=== PATIENT | male | born 1950 | race Caucasian/White ===

== ENCOUNTER → 2016-07-15 | Outpatient (CLI) | payer BC | LOC: MW.CHPOD 07:45 | PROVIDERS: ATTEND Orthopaedic Surgery | DX: M25.552 Pain in left hip (principal); Z53.9 Procedure and treatment not carried out, unspecified reason ==

== ENCOUNTER → 2016-07-19 | Outpatient (CLI) | payer BC ==
[2016-07-19 09:31] LABS: CHLORIDE,CL 108 mmol/L (98-110); SODIUM,NA 137 mmol/L (136-146)
== END ==
LOC: MW.CHPOD 08:57
PROVIDERS: ATTEND Podiatrist Foot & Ankle Surgery
DX: L03.116 Cellulitis of left lower limb (principal); E11.9 Type 2 diabetes mellitus without complications
CPT/HCPCS: 36415; 80048; 83036; 85025

== ENCOUNTER 2017-05-12 08:40 | Observation (INO) | payer MEDICARE, BC ==
[2017-05-12] MEDS ORDERED: Sodium Chloride 0.9% 1,000 ML IV SCH (09:00)
--- NOTE | 2017-05-12 09:07 | EDM.PDOC ---
ED HPI GENERAL MEDICAL PROBLEM - General Chief Complaint: General Stated Complaint: PT IS HER FOR A BLOOD TRANSFUSION Time Seen by Provider: 05/12/17 08:50 - History of Present Illness INITIAL COMMENTS - FREE TEXT/NARRATIVE: HISTORY AND PHYSICAL: History of present illness: Patient 66-year-old white male sent here from [facility] for anemia he is known to have chronic anemia and was scheduled to have endoscopy and colonoscopy per general surgery he had a hemoglobin on Friday of 7 and repeat today was 6 and he was sent here for admission and transfusion he denies chest pain shortness breath or other concern has been no melena or hematochezia or other complaints he has no known history of malignancy he does have history of diabetes that he states is reasonably controlled. He denies vomiting diarrhea weight loss he is noted to have a below the knee amputation on the left related to complications of diabetes Review of systems: As per history of present illness and below otherwise all systems reviewed and negative. Past medical history: As per history of present illness and as reviewed below otherwise noncontributory. Surgical history: As per history of present illness and as reviewed below otherwise noncontributory. Social history: No reported history of drug or alcohol abuse. Family history: As per history of present illness and as reviewed below otherwise noncontributory. Physical exam: HEENT: Atraumatic, normocephalic, pupils reactive, conjunctival pallor noted, mucous membranes moist, throat clear, neck supple, nontender, trachea midline. Lungs: Clear to auscultation, breath sounds equal bilaterally, chest nontender. Heart: S1S2, regular, negative for clicks, rubs, or JVD. Abdomen: Soft, protuberant , nontender. Negative for masses or hepatosplenomegaly. Negative for costovertebral tenderness. Pelvis: Stable nontender. Genitourinary: Deferred. Rectal: Deferred. Extremities: Left below the knee amputation noted Neuro: Awake, alert, oriented. Cranial nerves II through XII unremarkable. Cerebellum unremarkable. Motor and sensory unremarkable throughout. Exam nonfocal. Diagnostics: CBC CMP PT/INR chest x-ray EKG Type and screen Therapeutics: IV O2 monitor Impression: #1 profound anemia #2 history of diabetes Definitive disposition and diagnosis as appropriate pending reevaluation and review of above. - Related Data Allergies Allergy/AdvReac Type Severity Reaction Status Date / Time No Known Allergies Allergy Verified 05/12/17 09:00 Home Meds: Home Meds Gemfibrozil [Gemfibrozil] 1 tab DAILY 08/26/13 [History] atorvaSTATin [Lipitor] 10 mg PO ONETIME 12/17/15 [History] sitaGLIPtin Phos/Metformin HCl [Janumet 50-1,000 MG] 1 each PO DAILY 12/17/15 [ History] Past Medical History HEENT History: Reports: None Cardiovascular History: Reports: High Cholesterol, Hypertension Respiratory History: Reports: None Gastrointestinal History: Reports: GERD Genitourinary History: Reports: None Musculoskeletal History: Reports: None, Amputation Neurological History: Reports: None Psychiatric History: Reports: None Endocrine/Metabolic History: Reports: Diabetes, Type II Hematologic History: Reports: None Immunologic History: Reports: None Dermatologic History: Reports: None - Infectious Disease History Infectious Disease History: Reports: None - Past Surgical History HEENT Surgical History: Reports: None Cardiovascular Surgical History: Reports: Carotid Endarterectomy, Other (See Below) Other Cardiovascular Surgeries/Procedures: Femoral artery bypass Social & Family History - Tobacco Use Smoking Status *Q: Never Smoker - Caffeine Use Caffeine Use: Reports: Coffee - Alcohol Use Days Per Week of Alcohol Use: 0 Number of Drinks Per Day: 2 Total Drinks Per Week: 0 - Recreational Drug Use Recreational Drug Use: No Drug Use in Last 12 Months: No ED ROS GENERAL - Review of Systems Review Of Systems: ROS reveals no pertinent complaints other than HPI. ED EXAM, GENERAL - Physical Exam Exam: See Below (See dictation) Course - Orders/Labs/Meds Orders: Active Orders 24 hr Category Date Time Status EKG Documentation Completion [RC] STAT Care 05/12/17 08:51 Active Chest 1V Frontal [CR] Stat Exams 05/12/17 08:51 Ordered CBC WITH AUTO DIFF [HEME] Stat Lab 05/12/17 08:51 Ordered COMPREHENSIVE METABOLIC PN,CMP [CHEM] Stat Lab 05/12/17 08:51 Ordered INR,PT,PROTHROMBIN TIME [COAG] Stat Lab 05/12/17 08:51 Ordered TYPE AND SCREEN [BBK] Stat Lab 05/12/17 08:51 Ordered Sodium Chloride 0.9% [Normal Saline] 1,000 ml Med 05/12/17 09:00 Active IV STAT Medication Orders Sodium Chloride (Normal Saline) 1,000 mls @ 125 mls/hr IV STAT PHILLIP Meds: Medications Generic Name Dose Route Start Last Admin Trade Name Brent PRN Reason Stop Dose Admin Sodium Chloride 1,000 mls @ 125 mls/hr 05/12/17 09:00 Normal Saline IV STAT PHILLIP Departure - Departure Time of Disposition: 09:07 Disposition: Refer to Observation Condition: Good Clinical Impression: Anemia, Diabetes - Discharge Information Referrals: Jesse Gruber MD [Primary Care Provider] - - My Orders Last 24 Hours: My Active Orders 05/12/17 08:51 EKG Documentation Completion [RC] STAT Chest 1V Frontal [CR] Stat CBC WITH AUTO DIFF [HEME] Stat COMPREHENSIVE METABOLIC PN,CMP [CHEM] Stat INR,PT,PROTHROMBIN TIME [COAG] Stat TYPE AND SCREEN [BBK] Stat 05/12/17 09:00 Sodium Chloride 0.9% [Normal Saline] 1,000 ml IV STAT - Assessment/Plan Last 24 Hours: My Active Orders 05/12/17 08:51 EKG Documentation Completion [RC] STAT Chest 1V Frontal [CR] Stat CBC WITH AUTO DIFF [HEME] Stat COMPREHENSIVE METABOLIC PN,CMP [CHEM] Stat INR,PT,PROTHROMBIN TIME [COAG] Stat TYPE AND SCREEN [BBK] Stat 05/12/17 09:00 Sodium Chloride 0.9% [Normal Saline] 1,000 ml IV STAT
[2017-05-12] MEDS ORDERED: Sodium Chloride 0.9% 500 ML IV SCH ×2 (09:15→10:12)
[2017-05-12 09:46] LABS: CHLORIDE,CL 108 mmol/L (98-110); SODIUM,NA 139 mmol/L (136-146)
--- NOTE | 2017-05-12 10:12 | CR ---
EXAMINATION: Portable chest radiograph. HISTORY: Shortness of breath. FINDINGS: The trachea is midline. The cardiomediastinal silhouette is within normal limits. No pulmonary infilt rates, effusions or pneumothorax. Old left clavicle fracture noted with pseudarthrosis. IMPRESSION: No acute cardiopulmonary process.
[2017-05-12] MEDS ORDERED: Acetaminophen 325 MG Tab PO PRN (12:06)
[2017-05-12] MEDS ORDERED: Sodium Chloride 0.9% 2.5 ML Syringe FLUSH PRN (12:06)
[2017-05-12] MEDS ORDERED: Sodium Chloride 0.9% 10 ML Syringe FLUSH PRN (12:06)
--- NOTE | 2017-05-12 17:22 | PCM.HP ---
H&P History of Present Illness - General Date of Service: 05/12/17 Admit Problem/Dx: Admission Diagnosis/Problem Admission Diagnosis/Problem Anemia Source of Information: Patient History Limitations: Reports: No Limitations - History of Present Illness Initial Comments - Free Text/Narative: This is a 66-year-old gentleman who is presenting secondary to acute anemia of 6.6. Patient was just seen at the [facility] for laboratory assessment and was found to be anemic at 6.6 and was transferred over for blood transfusion. Patient is scheduled to have a screening colonoscopy and EGD on June [address] Segura. Patient denies any acute GI bleed, or acute abdominal pain, hemorrhoids, nausea/vomiting or other symptoms of acute blood loss. Patient states that he has been told that he has been pale and possibly anemic for the past month by family. Patient family wanted to see his primary care physician his primary care physician Dr. Fagan for assessment was found to be anemic. Patient states that he has been having dark tarry stools once or twice a month, and no sonali blood seen. Patient's past medical history significant for type 2 diabetes mellitus for which she's had a below knee amputation of his right leg secondary to complications of this type 2 diabetes. - Related Data Allergies/Adverse Reactions: Allergies Allergy/AdvReac Type Severity Reaction Status Date / Time No Known Allergies Allergy Verified 05/12/17 09:00 Home Medications: Home Meds Aspirin [Adult Low Dose Aspirin EC] 81 mg PO DAILY 05/12/17 [History] Cyclobenzaprine [Flexeril] 10 mg PO TID PRN 05/12/17 [History] Empagliflozin [Jardiance] 10 mg PO DAILY 05/12/17 [History] Gabapentin [Neurontin] 100 mg PO TID 05/12/17 [History] Gemfibrozil 600 mg PO BID 05/12/17 [History] Insulin Glargine,Hum.Rec.Anlog [Mary Ellen Quinones] 50 units SUBCUT DAILY 05/12/17 [History] Insulin Lispro [Humalog Kwikpen U-200] 0 unit SUBCUT TIDAC MDD 130 units [History] Omeprazole 40 mg PO ACBREAKFAST 05/12/17 [History] atorvaSTATin [Lipitor] 80 mg PO DAILY 05/12/17 [History] oxyCODONE 10 mg PO Q6H PRN 05/12/17 [History] sitaGLIPtin Phos/Metformin HCl [Janumet Xr 50-1,000 mg Tablet] 2 tab PO PCDINNER 05/12/17 [History] Past Medical History HEENT History: Reports: None Cardiovascular History: Reports: High Cholesterol, Hypertension Respiratory History: Reports: None Gastrointestinal History: Reports: GERD Genitourinary History: Reports: None Musculoskeletal History: Reports: None, Amputation Neurological History: Reports: None Psychiatric History: Reports: None Endocrine/Metabolic History: Reports: Diabetes, Type II Hematologic History: Reports: None Immunologic History: Reports: None Dermatologic History: Reports: None - Infectious Disease History Infectious Disease History: Reports: None - Past Surgical History HEENT Surgical History: Reports: None Cardiovascular Surgical History: Reports: Carotid Endarterectomy, Other (See Below) Other Cardiovascular Surgeries/Procedures: Femoral artery bypass Social & Family History - Tobacco Use Smoking Status *Q: Never Smoker Used Tobacco, but Quit: Yes Month Tobacco Last Used: 2010 - Caffeine Use Caffeine Use: Reports: Coffee - Alcohol Use Days Per Week of Alcohol Use: 0 Number of Drinks Per Day: 2 Total Drinks Per Week: 0 - Recreational Drug Use Recreational Drug Use: No Drug Use in Last 12 Months: No H&P Review of Systems - Review of Systems: Review Of Systems: ROS reveals no pertinent complaints other than HPI. Exam - Exam Exam: See Below - Vital Signs Vital Signs: Last Vital Signs Temp 36.7 C 05/12/17 17:03 Pulse 94 05/12/17 17:03 Resp 19 05/12/17 17:03 BP 140/71 05/12/17 17:03 Pulse Ox 100 05/12/17 17:03 Weight: 116 kg - Exam Quality Assessment: Supplemental Oxygen General: Alert, Oriented, Cooperative Neck: Supple Lungs: Clear to Auscultation, Normal Respiratory Effort Cardiovascular: Regular Rate, Regular Rhythm GI/Abdominal Exam: Normal Bowel Sounds, Other (FOBT done, negative, no sonali blood seen on the genitorectal exam) Rectal (Males) Exam: Normal Exam, Normal Rectal Tone, Prostate Normal, Other ( No signs of hemorrhoids appreciated) Extremities: Normal Inspection, Normal Range of Motion, Non-Tender Skin: Warm, Cool - Patient Data Lab Results Last 24 hrs: Laboratory Results - last 24 hr 05/12/17 Range/Units 13:14 POC Glucose 148 H (60-110) mg/dL Result Diagrams: 05/12/17 09:13 05/12/17 09:05 Earl Results Last 24 hrs: Microbiology 05/12/17 12:45 Stool Occult Blood (EARL) - Final Stool / Feces NEGATIVE OCCULT BLOOD *Q Meaningful Use (ADM) - VTE *Q VTE Criteria *Q: - Stroke *Q Stroke Criteria *Q: - AMI *Q AMI Criteria *Q: - Problem List (1) Anemia SNOMED Code(s): 368933478 ICD Code: D64.9 - ANEMIA, UNSPECIFIED Status: Acute Current Visit: No (2) Diabetes SNOMED Code(s): 68498899 ICD Code: E11.9 - TYPE 2 DIABETES MELLITUS WITHOUT COMPLICATIONS Status: Acute Current Visit: Yes Problem List Initiated/Reviewed/Updated: Yes Orders Last 24hrs: Active Orders 24 hr Category Date Time Status Patient Status [ADT] Routine ADT 05/12/17 12:06 Active Antiembolic Devices [RC] PER UNIT ROUTINE Care 05/12/17 12:13 Active Blood Glucose Check, Bedside [RC] QIDACANDBED Care 05/12/17 12:06 Active Intake and Output [RC] Q12H Care 05/12/17 12:07 Active Oxygen Therapy [RC] PRN Care 05/12/17 12:06 Active Pulse Oximetry [RC] PRN Care 05/12/17 12:07 Active Up With Assistance [RC] ASDIRECTED Care 05/12/17 12:06 Active Verify Patient Consent Obtain [RC] ASDIRECTED Care 05/12/17 12:13 Active Vital Signs [RC] Q4H Care 05/12/17 12:06 Active [employer] Diet [DIET] Diet 05/12/17 Dinner Active Abdomen Pelvis w wo Cont [CT] Routine Exams 05/12/17 15:16 Ordered CBC WITH AUTO DIFF [HEME] AM Lab 05/13/17 05:11 Ordered Acetaminophen [Tylenol] Med 05/12/17 12:06 Active 650 mg PO Q4H PRN Insulin Aspart [NovoLOG] Med 05/12/17 17:00 Active See Protocol SUBCUT TIDAC Sodium Chloride 0.9% [Normal Saline] 1,000 ml Med 05/12/17 12:15 Active IV ASDIRECTED Sodium Chloride 0.9% [Normal Saline] 500 ml Med 05/12/17 10:12 Active IV ASDIRECTED Sodium Chloride 0.9% [Saline Flush] Med 05/12/17 12:06 Active 10 ml FLUSH ASDIRECTED PRN Sodium Chloride 0.9% [Saline Flush] Med 05/12/17 12:06 Active 2.5 ml FLUSH ASDIRECTED PRN Peripheral IV Insertion Adult [OM.PC] Routine Ot 05/12/17 12:06 Ordered Saline Lock Insert [OM.PC] Routine Ot 05/12/17 12:06 Ordered Sequential Compression Device [OM.PC] Per Unit Routine Ot 05/12/17 12:08 Ordered Transfuse Red Blood Cells [COMM] Routine Oth 05/12/17 12:06 Ordered Resuscitation Status Routine Resus Stat 05/12/17 12:06 Ordered Medication Orders Acetaminophen (Tylenol) 650 mg PO Q4H PRN PRN Reason: Pain (Mild 1-3)/fever Sodium Chloride (Normal Saline) 500 mls @ 125 mls/hr IV ASDIRECTED PHILLIP Sodium Chloride (Normal Saline) 1,000 mls @ 125 mls/hr IV ASDIRECTED PHILLIP Insulin Aspart (Novolog) 0 unit SUBCUT TIDAC PHILLIP PRN Reason: Protocol Sodium Chloride (Saline Flush) 10 ml FLUSH ASDIRECTED PRN PRN Reason: Keep Vein Open Sodium Chloride (Saline Flush) 2.5 ml FLUSH ASDIRECTED PRN PRN Reason: Keep Vein Open Assessment/Plan Comment:: This is a 66-year-old male presenting with acute anemia of 6.6 requiring blood transfusion shows acute anemia of presently unknown etiology. I have spoken with Dr. Segura and Dr. Ortiz and the plan is for the patient to get an abdominal/pelvic CT with oral contrast to assess for any GI-related etiology that would account for the patient's acute anemia. Dr. Ortiz plans on having the patient have a colonoscopy this Friday. Patient to get 2 units of red blood cells, and H&H after the blood transfusion, patient to start oral contrast and be made nothing by mouth for his abdominal CT in the a.m. Patient will be prepped for colonoscopy on Friday, Dr. Ortiz shall see the patient tomorrow for assessment. For the patient's type 2 diabetes glucose check 3 times a day with meals and at bedtime, low-dose insulin sliding scale with NovoLog. CBC, CMP in the a.m.
[2017-05-12] MEDS: Insulin Aspart 100 Units/ML 3 ML Pen SUBCUT SCH (18:36)
--- NOTE | 2017-05-12 18:50 | PCM.CONS ---
H&P History of Present Illness - General Date of Service: 05/12/17 Admit Problem/Dx: Admission Diagnosis/Problem Admission Diagnosis/Problem Anemia History Limitations: Reports: No Limitations - History of Present Illness Initial Comments - Free Text/Narative: Patient is a 66 year old male who presented with anemia of unknown origin. He said that ~1 month ago his family started mentioning that he looked pale. He did not feel weak or dizzy. He denies any syncope. He last had a colonoscopy ~8 years ago which was normal. He says that occasionally he will notice dark stools but not lately. He has occasional heartburn but not lately. He was supposed to see my partner for possible EGD-colonoscopy. He had outpatient labs today that showed a hemoglobin of 6.6. He was sent to the ED for further workup. His platelet count was normal. His INR was normal. He had a CXR that was normal. He has had no other imaging performed. A FOBT came back negative. He has a heart murmur but never had surgery for it. He denies a family history of colon cancer. 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 He denies any complications. He has a history of vascular bypass surgeries to both legs. His wound has healed well. - Related Data Allergies/Adverse Reactions: Allergies Allergy/AdvReac Type Severity Reaction Status Date / Time No Known Allergies Allergy Verified 05/12/17 09:00 Home Medications: Home Meds Aspirin [Adult Low Dose Aspirin EC] 81 mg PO DAILY 05/12/17 [History] Cyclobenzaprine [Flexeril] 10 mg PO TID PRN 05/12/17 [History] Empagliflozin [Jardiance] 10 mg PO DAILY 05/12/17 [History] Gabapentin [Neurontin] 100 mg PO TID 05/12/17 [History] Gemfibrozil 600 mg PO BID 05/12/17 [History] Insulin Glargine,Hum.Rec.Anlog [Mary Ellen Quinones] 50 units SUBCUT DAILY 05/12/17 [History] Insulin Lispro [Humalog Kwikpen U-200] 0 unit SUBCUT TIDAC MDD 130 units [History] Omeprazole 40 mg PO ACBREAKFAST 05/12/17 [History] atorvaSTATin [Lipitor] 80 mg PO DAILY 05/12/17 [History] oxyCODONE 10 mg PO Q6H PRN 05/12/17 [History] sitaGLIPtin Phos/Metformin HCl [Janumet Xr 50-1,000 mg Tablet] 2 tab PO PCDINNER 05/12/17 [History] Past Medical History HEENT History: Reports: None Cardiovascular History: Reports: High Cholesterol, Hypertension Respiratory History: Reports: None Gastrointestinal History: Reports: GERD Genitourinary History: Reports: None Musculoskeletal History: Reports: None, Amputation Neurological History: Reports: None Psychiatric History: Reports: None Endocrine/Metabolic History: Reports: Diabetes, Type II Hematologic History: Reports: None Immunologic History: Reports: None Dermatologic History: Reports: None - Infectious Disease History Infectious Disease History: Reports: None - Past Surgical History HEENT Surgical History: Reports: None Cardiovascular Surgical History: Reports: Carotid Endarterectomy, Other (See Below) Other Cardiovascular Surgeries/Procedures: Femoral artery bypass Social & Family History - Tobacco Use Smoking Status *Q: Never Smoker Used Tobacco, but Quit: Yes Month Tobacco Last Used: 2010 - Caffeine Use Caffeine Use: Reports: Coffee - Alcohol Use Days Per Week of Alcohol Use: 0 Number of Drinks Per Day: 2 Total Drinks Per Week: 0 - Recreational Drug Use Recreational Drug Use: No Drug Use in Last 12 Months: No H&P Review of Systems - Review of Systems: Review Of Systems: ROS reveals no pertinent complaints other than HPI. Exam - Exam Exam: See Below - Vital Signs Vital Signs: Last Vital Signs Temp 36.6 C 05/12/17 17:18 Pulse 87 05/12/17 17:18 Resp 18 05/12/17 17:18 BP 130/62 05/12/17 17:18 Pulse Ox 99 05/12/17 17:18 Weight: 116 kg - Exam General: Alert, Oriented HEENT: Conjunctiva Clear, Hearing Intact, Mucosa Moist & Bowdle, Posterior Pharynx Clear, Pupils Equal, Pupils Reactive Neck: Supple, Trachea Midline Lungs: Clear to Auscultation, Normal Respiratory Effort Cardiovascular: Regular Rhythm, Systolic Murmur GI/Abdominal Exam: Soft, Non-Tender, No Distention, No Mass Back Exam: Normal Inspection, Full Range of Motion Extremities: Normal Inspection, Other (well healed left BKA incision with a small medial scab. No evidence of infection ) - Patient Data Lab Results Last 24 hrs: Laboratory Results - last 24 hr 05/12/17 05/12/17 Range/Units 13:14 17:50 POC Glucose 148 H 238 H (60-110) mg/dL Result Diagrams: 05/12/17 09:13 05/12/17 09:05 Earl Results Last 24 hrs: Microbiology 05/12/17 12:45 Stool Occult Blood (EARL) - Final Stool / Feces NEGATIVE OCCULT BLOOD Consult PN Assessment/Plan Procedures: Procedures ASSAY OF IRON (01/20/14) COLONOSCOPY AND BIOPSY (08/27/13) COMPLETE CBC AUTOMATED (07/30/13) COMPLETE CBC W/AUTO DIFF WBC (07/19/16) COMPREHEN METABOLIC PANEL (07/30/13) EGD BIOPSY SINGLE/MULTIPLE (08/27/13) EMERGENCY DEPT VISIT (12/17/15) EVALUATE PT USE OF INHALER (08/27/13) GAIT TRAINING THERAPY (02/14/17) GLUCOSE BLOOD TEST (08/27/13) GLYCOSYLATED HEMOGLOBIN TEST (07/19/16) HEMATOCRIT (01/20/14) HEMOGLOBIN (01/20/14) IRON BINDING TEST (07/30/13) LIPID PANEL (01/20/14) METABOLIC PANEL TOTAL CA (07/19/16) PT EVAL LOW COMPLEX 20 MIN (11/21/16) RMVL DEVITAL TIS 20 CM/< (10/30/16) ROUTINE VENIPUNCTURE (07/19/16) RPR S/N/AX/GEN/TRNK 2.5CM/< (12/17/15) SPECIAL STAINS GROUP 1 (08/27/13) THER/PROPH/DIAG INJ SC/IM (12/17/15) THER/PROPH/DIAG IV INF ADDON (11/12/16) THER/PROPH/DIAG IV INF INIT (11/12/16) THERAPEUTIC ACTIVITIES (12/20/16) THERAPEUTIC EXERCISES (02/14/17) TISSUE EXAM BY PATHOLOGIST (08/27/13) TREAT TOE DISLOCATION (12/17/15) TTE W/DOPPLER COMPLETE (12/19/16) UR ALBUMIN SEMIQUANTITATIVE (07/30/13) URINALYSIS AUTO W/SCOPE (07/30/13) X-RAY EXAM OF FOOT (10/17/16) X-RAY EXAM OF FOOT (12/19/15) X-RAY EXAM OF FOOT (12/17/15) (1) Anemia SNOMED Code(s): 156697981 Code(s): D64.9 - ANEMIA, UNSPECIFIED Current Visit: No Problem List Initiated/Reviewed/Updated: Yes Plan: It is unclear where this patient is losing blood from. If it were coming from the GI tract I would expect his FOBT to be positive. He should have a CT of the abdomen pelvis performed with IV and oral contrast to look for a GI source (ulcer vs mass) or other cause of his blood loss. If this is negative the next step would be to perform a diagnostic EGD and colonoscopy. After his CT tomorrow morning, he can advance his diet to clears and should start his bowel prep. I will review the images to make the final decision about EGD and colonoscopy for friday but he can start the bowel prep regardless. The bowel prep involves taking 4 dulcolax tablets at 10 am. He should then mix 32 oz of sports drink (i.e. Gatorade) with 1/2 bottle of miralax. He should drink this over 3 hours. He should then mix the other 1/2 bottle of miralax with another 32 oz of sports drink and finish that over 3 hours. The goal is to be having liquid bowel movements by Friday morning. We discussed the procedures as well as the expected nicol-operative course. We discussed the risks including bleeding infection or damage to surrounding structures. The patient verbalized understanding and wishes to proceed.
[2017-05-12] MEDS: Sodium Chloride 0.9% 1,000 ML IV SCH (19:58)
[2017-05-13 05:41] LABS: CHLORIDE,CL 110 mmol/L (98-110); SODIUM,NA 141 mmol/L (136-146)
[2017-05-13] MEDS: Insulin Aspart 100 Units/ML 3 ML Pen SUBCUT SCH ×3 (06:31→17:00)
[2017-05-13] MEDS: Sodium Chloride 0.9% 1,000 ML IV SCH (07:07)
[2017-05-13] MEDS ORDERED: Sodium Chloride 0.9% 1,000 ML IV SCH (07:47)
[2017-05-13] MEDS ORDERED: Iopamidol 755 MG/ML 500 ML Multipack Bottle IVPUSH ONE (09:47)
[2017-05-13] MEDS ORDERED: Bisacodyl 5 MG Tab PO ONE (10:00)
--- NOTE | 2017-05-13 10:17 | PCM.PN ---
- General Info Date of Service: 05/13/17 Admission Dx/Problem (Free Text): Admission Diagnosis/Problem Admission Diagnosis/Problem Anemia Subjective Update: Doing well this morning, sitting on the edge of bed visiting with and drinking contrast for CT. Denies any pain. Feeling better. reports he looks much less pale. No chest pain or SOB. Functional Status: Reports: Pain Controlled, Tolerating Diet, Urinating - Review of Systems HEENT: Reports: No Symptoms. Denies: Headaches, Sore Throat, Visual Changes Pulmonary: Reports: No Symptoms. Denies: Shortness of Breath Cardiovascular: Reports: No Symptoms. Denies: Chest Pain Gastrointestinal: Reports: No Symptoms. Denies: Abdominal Pain, Nausea, Vomiting Genitourinary: Reports: No Symptoms. Denies: Dysuria, Frequency Musculoskeletal: Reports: No Symptoms Neurological: Reports: No Symptoms Psychiatric: Reports: No Symptoms - Patient Data Vitals - Most Recent: Last Vital Signs Temp 97.5 F 05/13/17 07:08 Pulse 79 05/13/17 07:08 Resp 16 05/13/17 07:08 BP 148/65 H 05/13/17 07:08 Pulse Ox 98 05/13/17 07:08 Weight - Most Recent: 116 kg I&O - Last 24 Hours: Intake & Output 05/12/17 05/13/17 05/13/17 22:59 06:59 14:59 Intake Total 1476 1336 1000 Output Total 450 1600 Balance 1026 -264 1000 Lab Results Last 24 Hours: Laboratory Results - last 24 hr 05/12/17 05/12/17 05/12/17 Range/Units 13:14 17:50 20:35 WBC (4.0-11.0) K/uL RBC (4.50-5.90) M/uL Hgb 8.9 L (13.0-17.0) g/dL Hct 28.6 L (38.0-50.0) % MCV (80.0-98.0) fL MCH (27.0-32.0) pg MCHC (31.0-37.0) g/dL RDW Std Deviation (28.0-62.0) fl RDW Coeff of Jigar (11.0-15.0) % Plt Count (150-400) K/uL MPV (7.40-12.00) fL Neut % (Auto) (48.0-80.0) % Lymph % (Auto) (16.0-40.0) % [place] % (Auto) (0.0-15.0) % Eos % (Auto) (0.0-7.0) % Baso % (Auto) (0.0-1.5) % Neut # (Auto) (1.4-5.7) K/uL Lymph # (Auto) (0.6-2.4) K/uL [place] # (Auto) (0.0-0.8) K/uL Eos # (Auto) (0.0-0.7) K/uL Baso # (Auto) (0.0-0.1) K/uL Nucleated RBC % /100WBC Nucleated RBCs # K/uL Sodium (136-146) mmol/L Potassium (3.5-5.1) mmol/L Chloride (98-110) mmol/L Carbon Dioxide (21-31) mmol/L BUN (6.0-23.0) mg/dL Creatinine (0.6-1.5) mg/dL Est Cr Clr Drug Dosing mL/min Estimated GFR (MDRD) ml/min Glucose (60-110) mg/dL POC Glucose 148 H 238 H (60-110) mg/dL Calcium (8.8-10.8) mg/dL Total Bilirubin (0.1-1.5) mg/dL AST (5-40) IU/L ALT (8-54) IU/L Alkaline Phosphatase (40-150) Total Protein (6.0-8.0) g/dL Albumin (3.4-4.8) g/dL Globulin (2.0-3.5) g/dL Albumin/Globulin Ratio (1.3-2.8) 05/12/17 05/13/17 05/13/17 Range/Units 20:59 04:59 04:59 WBC 9.48 (4.0-11.0) K/uL RBC 4.11 L (4.50-5.90) M/uL Hgb 9.3 L (13.0-17.0) g/dL Hct 30.2 L (38.0-50.0) % MCV 73.5 L (80.0-98.0) fL MCH 22.6 L (27.0-32.0) pg MCHC 30.8 L (31.0-37.0) g/dL RDW Std Deviation 52.1 (28.0-62.0) fl RDW Coeff of Jigar 20 H (11.0-15.0) % Plt Count 517 H (150-400) K/uL MPV 8.90 (7.40-12.00) fL Neut % (Auto) 60.0 (48.0-80.0) % Lymph % (Auto) 26.9 (16.0-40.0) % [place] % (Auto) 10.9 (0.0-15.0) % Eos % (Auto) 1.9 (0.0-7.0) % Baso % (Auto) 0.3 (0.0-1.5) % Neut # (Auto) 5.7 (1.4-5.7) K/uL Lymph # (Auto) 2.6 H (0.6-2.4) K/uL [place] # (Auto) 1.0 H (0.0-0.8) K/uL Eos # (Auto) 0.2 (0.0-0.7) K/uL Baso # (Auto) 0.0 (0.0-0.1) K/uL Nucleated RBC % 0.0 /100WBC Nucleated RBCs # 0 K/uL Sodium 141 (136-146) mmol/L Potassium 4.9 (3.5-5.1) mmol/L Chloride 110 (98-110) mmol/L Carbon Dioxide 24 (21-31) mmol/L BUN 18 (6.0-23.0) mg/dL Creatinine 0.8 (0.6-1.5) mg/dL Est Cr Clr Drug Dosing 110.03 mL/min Estimated GFR (MDRD) > 60.0 ml/min Glucose 135 H (60-110) mg/dL POC Glucose 134 H (60-110) mg/dL Calcium 8.8 (8.8-10.8) mg/dL Total Bilirubin 1.2 (0.1-1.5) mg/dL AST 14 (5-40) IU/L ALT 14 (8-54) IU/L Alkaline Phosphatase 105 (40-150) Total Protein 6.9 (6.0-8.0) g/dL Albumin 3.9 (3.4-4.8) g/dL Globulin 3.0 (2.0-3.5) g/dL Albumin/Globulin Ratio 1.3 (1.3-2.8) 05/13/17 Range/Units 06:07 WBC (4.0-11.0) K/uL RBC (4.50-5.90) M/uL Hgb (13.0-17.0) g/dL Hct (38.0-50.0) % MCV (80.0-98.0) fL MCH (27.0-32.0) pg MCHC (31.0-37.0) g/dL RDW Std Deviation (28.0-62.0) fl RDW Coeff of Jigar (11.0-15.0) % Plt Count (150-400) K/uL MPV (7.40-12.00) fL Neut % (Auto) (48.0-80.0) % Lymph % (Auto) (16.0-40.0) % [place] % (Auto) (0.0-15.0) % Eos % (Auto) (0.0-7.0) % Baso % (Auto) (0.0-1.5) % Neut # (Auto) (1.4-5.7) K/uL Lymph # (Auto) (0.6-2.4) K/uL [place] # (Auto) (0.0-0.8) K/uL Eos # (Auto) (0.0-0.7) K/uL Baso # (Auto) (0.0-0.1) K/uL Nucleated RBC % /100WBC Nucleated RBCs # K/uL Sodium (136-146) mmol/L Potassium (3.5-5.1) mmol/L Chloride (98-110) mmol/L Carbon Dioxide (21-31) mmol/L BUN (6.0-23.0) mg/dL Creatinine (0.6-1.5) mg/dL Est Cr Clr Drug Dosing mL/min Estimated GFR (MDRD) ml/min Glucose (60-110) mg/dL POC Glucose 110 (60-110) mg/dL Calcium (8.8-10.8) mg/dL Total Bilirubin (0.1-1.5) mg/dL AST (5-40) IU/L ALT (8-54) IU/L Alkaline Phosphatase (40-150) Total Protein (6.0-8.0) g/dL Albumin (3.4-4.8) g/dL Globulin (2.0-3.5) g/dL Albumin/Globulin Ratio (1.3-2.8) Earl Results Last 24 Hours: Microbiology 05/12/17 12:45 Stool Occult Blood (EARL) - Final Stool / Feces NEGATIVE OCCULT BLOOD Med Orders - Current: Current Medications Acetaminophen (Tylenol) 650 mg PO Q4H PRN PRN Reason: Pain (Mild 1-3)/fever Sodium Chloride (Normal Saline) 1,000 mls @ 75 mls/hr IV ASDIRECTED PHILLIP Insulin Aspart (Novolog) 0 unit SUBCUT TIDAC PHILLIP PRN Reason: Protocol Last Admin: 05/13/17 06:31 Dose: Not Given Polyethylene Glycol (Miralax) 119 gm PO Q3H PHILLIP Stop: 05/13/17 13:01 Sodium Chloride (Saline Flush) 10 ml FLUSH ASDIRECTED PRN PRN Reason: Keep Vein Open Sodium Chloride (Saline Flush) 2.5 ml FLUSH ASDIRECTED PRN PRN Reason: Keep Vein Open Discontinued Medications Bisacodyl (Dulcolax) 20 mg PO ONETIME ONE Stop: 05/13/17 10:01 Sodium Chloride (Normal Saline) 1,000 mls @ 125 mls/hr IV STAT PHILLIP Sodium Chloride (Normal Saline) 500 mls @ 125 mls/hr IV ASDIRECTED PHILLIP Last Admin: 05/12/17 09:42 Dose: 125 mls/hr Sodium Chloride (Normal Saline) 500 mls @ 125 mls/hr IV ASDIRECTED PHILLIP Sodium Chloride (Normal Saline) 1,000 mls @ 125 mls/hr IV ASDIRECTED PHILLIP Last Admin: 05/13/17 07:07 Dose: 125 mls/hr Iopamidol (Isovue Multipack-370 (76%)) 100 ml IVPUSH ONETIME ONE Stop: 05/13/17 09:48 - Exam General: Alert, Oriented, Cooperative, No Acute Distress HEENT: Pupils Equal, Pupils Reactive, EOMI, Mucous Membr. Moist/[place] Neck: Supple Lungs: Clear to Auscultation, Normal Respiratory Effort Cardiovascular: Regular Rate, Regular Rhythm GI/Abdominal Exam: Normal Bowel Sounds, Soft, Non-Tender, No Organomegaly, No Distention, No Abnormal Bruit, No Mass, Pelvis Stable Extremities: Normal Inspection, Normal Range of Motion, Non-Tender, No Pedal Edema, Normal Capillary Refill, Other (L BKA, incision healing nicely no erythema) Skin: Warm, Dry, Intact Neurological: No New Focal Deficit Psy/Mental Status: Alert, Normal Affect, Normal Mood - Problem List & Annotations (1) Anemia SNOMED Code(s): 212114904 Code(s): D64.9 - ANEMIA, UNSPECIFIED Status: Acute Current Visit: No (2) Hx of BKA Status: Chronic Current Visit: Yes Qualifiers: Laterality: left Qualified Code(s): Z89.512 - Acquired absence of left leg below knee (3) Diabetes SNOMED Code(s): 75287535 Code(s): E11.9 - TYPE 2 DIABETES MELLITUS WITHOUT COMPLICATIONS Status: Acute Current Visit: Yes Qualifiers: Diabetes mellitus type: type 2 Diabetes mellitus complication status: without complication Diabetes mellitus terminal manager insulin use: with mcc use Qualified Code(s): E11.9 - Type 2 diabetes mellitus without complications ; Z79.4 - dedicated intermodal truck driver (current) use of insulin; Z79.4 - half-way (current) use of insulin; Z79.4 - dedicated intermodal truck driver (current) use of insulin; 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 1. Anemia: Hgb up to 9.3 this morning. Hemoccult negative. EGD/colonscopy planned in am with Dr Arreola.. Prep started this morning. Abd/pelvis CT obtained no acute findings besides a subtle lucency noted on vertebral body L2, will notify patient and suggest follow up with PCP. 2. DM type 2: Novolog SSI BS controlled. Will monitor Holding PO medications. 3. Hx L BKA: Restart Gabapentin and PRN OXycodone for pain. Stable now. Hold when NPO for endoscopy tomorrow. VTE prophylaxis: SCDs only due to anemia Dispo: 1-2 days
[2017-05-13] MEDS: Polyethylene Glycol 3350 Powder 17 GM Packet PO SCH ×2 (10:25→13:11)
--- NOTE | 2017-05-13 11:08 | CT ---
CT of the abdomen and pelvis with contrast. HISTORY: Anemia TECHNIQUE: Axial CT images were obtained of the abdomen and pelvis before and following administratio n of 100 mL of Isovue-370 in the right arm without complication. Coronal and sagittal reconstructions obtained. FINDINGS: The lung bases are clear, no pleural effusion. The liver, spleen, adrenal glands, and pancreas appear normal. The gallbladder is normal. No bulky re troperitoneal lymphadenopathy or abdominal ascites. The kidneys enhance and function symmetrically without evidence of obstructive uropathy. Small cyst w ithin the inferior pole of the right kidney. Hemorrhagic cyst noted within the mid left kidney. The large and small bowel are normal in caliber without evidence of obstruction. No focal pericolonic inflammation. Femorofemoral bypass is noted. The urinary bladder is normal. No pelvic lymphadenopath y or free pelvic fluid. Femorofemoral bypass noted. Stents noted within the left iliac artery. Subtle 2.8 cm lucency within the vertebral body at L2. IMPRESSION: 1. No acute findings within the abdomen or pelvis. 2. Subtle 2.8 cm lucency within the vertebral body at L2. Possibly a hemangioma, correlation with an MRI with and without contrast may be beneficial.
[2017-05-13] MEDS ORDERED: oxyCODONE 5 MG Tab PO PRN (11:24)
[2017-05-13] MEDS: Gabapentin 100 MG Cap PO SCH ×2 (13:15→21:15)
--- NOTE | 2017-05-13 16:26 | PCM.PREANE ---
Preanesthetic Assessment - Anesthesia/Transfusion/Family Hx Anesthesia History: Prior Anesthesia Without Reaction Other Type of Anesthesia Reaction Comment: Denies any known problem with anesthesia in the past Transfusion History: Prior Transfusion Without Reaction - Review of Systems General: No Symptoms Pulmonary: No Symptoms Cardiovascular: No Symptoms Gastrointestinal: No Symptoms Neurological: No Symptoms Other: Reports: None - Physical Assessment O2 Sat by Pulse Oximetry: 95 Respiratory Rate: 18 Temperature: 98.1 F Vital Signs: Last Vital Signs Temp 97.6 F 05/13/17 11:37 Pulse 82 05/13/17 11:37 Resp 18 05/13/17 11:37 BP 147/63 H 05/13/17 11:37 Pulse Ox 95 05/13/17 11:37 Height: 6 ft 3 in Weight: 116 kg ASA Class: 3 Mental Status: Alert & Oriented x3 Airway Class: Mallampati = 2 Dentition: Reports: Broken Tooth/Teeth, Missing Tooth/Teeth Thyro-Mental Finger Breadths: 3 Mouth Opening Finger Breadths: 3 ROM/Head Extension: Full Lungs: Clear to Auscultation, Normal Respiratory Effort Cardiovascular: Regular Rate, Regular Rhythm - Lab Values: Laboratory Last Values WBC 9.48 K/uL (4.0-11.0) 05/13/17 04:59 RBC 4.11 M/uL (4.50-5.90) L 05/13/17 04:59 Hgb 9.3 g/dL (13.0-17.0) L 05/13/17 04:59 Hct 30.2 % (38.0-50.0) L 05/13/17 04:59 MCV 73.5 fL (80.0-98.0) L 05/13/17 04:59 MCH 22.6 pg (27.0-32.0) L 05/13/17 04:59 MCHC 30.8 g/dL (31.0-37.0) L 05/13/17 04:59 RDW Std Deviation 52.1 fl (28.0-62.0) 05/13/17 04:59 RDW Coeff of Jigar 20 % (11.0-15.0) H 05/13/17 04:59 Plt Count 517 K/uL (150-400) H 05/13/17 04:59 MPV 8.90 fL (7.40-12.00) 05/13/17 04:59 Neut % (Auto) 60.0 % (48.0-80.0) 05/13/17 04:59 Lymph % (Auto) 26.9 % (16.0-40.0) 05/13/17 04:59 [place] % (Auto) 10.9 % (0.0-15.0) 05/13/17 04:59 Eos % (Auto) 1.9 % (0.0-7.0) 05/13/17 04:59 Baso % (Auto) 0.3 % (0.0-1.5) 05/13/17 04:59 Neut # (Auto) 5.7 K/uL (1.4-5.7) 05/13/17 04:59 Lymph # (Auto) 2.6 K/uL (0.6-2.4) H 05/13/17 04:59 [place] # (Auto) 1.0 K/uL (0.0-0.8) H 05/13/17 04:59 Eos # (Auto) 0.2 K/uL (0.0-0.7) 05/13/17 04:59 Baso # (Auto) 0.0 K/uL (0.0-0.1) 05/13/17 04:59 Nucleated RBC % 0.0 /100WBC 05/13/17 04:59 Nucleated RBCs # 0 K/uL 05/13/17 04:59 INR 1.05 05/12/17 09:05 Sodium 141 mmol/L (136-146) 05/13/17 04:59 Potassium 4.9 mmol/L (3.5-5.1) 05/13/17 04:59 Chloride 110 mmol/L (98-110) 05/13/17 04:59 Carbon Dioxide 24 mmol/L (21-31) 05/13/17 04:59 BUN 18 mg/dL (6.0-23.0) 05/13/17 04:59 Creatinine 0.8 mg/dL (0.6-1.5) 05/13/17 04:59 Est Cr Clr Drug Dosing 110.03 mL/min 05/13/17 04:59 Estimated GFR (MDRD) > 60.0 ml/min 05/13/17 04:59 Glucose 135 mg/dL (60-110) H 05/13/17 04:59 POC Glucose 126 mg/dL (60-110) H 05/13/17 11:42 Calcium 8.8 mg/dL (8.8-10.8) 05/13/17 04:59 Total Bilirubin 1.2 mg/dL (0.1-1.5) 05/13/17 04:59 AST 14 IU/L (5-40) 05/13/17 04:59 ALT 14 IU/L (8-54) 05/13/17 04:59 Alkaline Phosphatase 105 (40-150) 05/13/17 04:59 Total Protein 6.9 g/dL (6.0-8.0) 05/13/17 04:59 Albumin 3.9 g/dL (3.4-4.8) 05/13/17 04:59 Globulin 3.0 g/dL (2.0-3.5) 05/13/17 04:59 Albumin/Globulin Ratio 1.3 (1.3-2.8) 05/13/17 04:59 Blood Type B POSITIVE 05/12/17 09:13 Antibody Screen NEGATIVE 05/12/17 09:13 Crossmatch See Detail 05/12/17 09:13 - Allergies Allergies/Adverse Reactions: Allergies Allergy/AdvReac Type Severity Reaction Status Date / Time No Known Allergies Allergy Verified 05/12/17 09:00 - Anesthesia Plan Free Text/Narrative:: EKG this admission - SR 11/2016 - ECHO - EF 55-60%, Normal RV, Mild aortic valve sclerosis without stenosis, trace mitral and tricuspid valve regurg. No change from 07/2013 Echo. - Acknowledgements Anesthesia Type Planned: MAC Pt an Appropriate Candidate for the Planned Anesthesia: Yes Alternatives and Risks of Anesthesia Discussed w Pt/Guardian: Yes Pt/Guardian Understands and Agrees with Anesthesia Plan: Yes PreAnesthesia Questionnaire HEENT History: Reports: None Cardiovascular History: Reports: High Cholesterol, Hypertension Respiratory History: Reports: None Gastrointestinal History: Reports: GERD Genitourinary History: Reports: None Musculoskeletal History: Reports: None, Amputation Neurological History: Reports: None Psychiatric History: Reports: None Endocrine/Metabolic History: Reports: Diabetes, Type II Hematologic History: Reports: None Immunologic History: Reports: None Oncologic (Cancer) History: Reports: None Dermatologic History: Reports: None - Infectious Disease History Infectious Disease History: Reports: None - Past Surgical History HEENT Surgical History: Reports: None Cardiovascular Surgical History: Reports: Carotid Endarterectomy, Other (See Below) Other Cardiovascular Surgeries/Procedures: Femoral artery bypass - SUBSTANCE USE Smoking Status *Q: Heavy Tobacco Smoker (20 years 2.5 PPD smoker) Days Per Week of Alcohol Use: 0 Number of Drinks Per Day: 2 Total Drinks Per Week: 0 Recreational Drug Use History: No - HOME MEDS Home Medications: Home Meds Aspirin [Adult Low Dose Aspirin EC] 81 mg PO DAILY 05/12/17 [History] Cyclobenzaprine [Flexeril] 10 mg PO TID PRN 05/12/17 [History] Empagliflozin [Jardiance] 10 mg PO DAILY 05/12/17 [History] Gabapentin [Neurontin] 100 mg PO TID 05/12/17 [History] Gemfibrozil 600 mg PO BID 05/12/17 [History] Insulin Glargine,Hum.Rec.Anlog [Toujeo Solostar] 50 units SUBCUT DAILY 05/12/17 [History] Insulin Lispro [Humalog Kwikpen U-200] 0 unit SUBCUT TIDAC MDD 130 units [History] Omeprazole 40 mg PO ACBREAKFAST 05/12/17 [History] atorvaSTATin [Lipitor] 80 mg PO DAILY 05/12/17 [History] oxyCODONE 10 mg PO Q6H PRN 05/12/17 [History] sitaGLIPtin Phos/Metformin HCl [Janumet Xr 50-1,000 mg Tablet] 2 tab PO PCDINNER 05/12/17 [History] - CURRENT (IN HOUSE) MEDS Current Meds: Current Medications Acetaminophen (Tylenol) 650 mg PO Q4H PRN PRN Reason: Pain (Mild 1-3)/fever Atorvastatin Calcium (Lipitor) 80 mg PO DAILY PHILLIP Gabapentin (Neurontin) 100 mg PO TID [facility] Last Admin: 05/13/17 13:15 Dose: 100 mg Insulin Aspart (Novolog) 0 unit SUBCUT TIDAC PHILLIP PRN Reason: Protocol Last Admin: 05/13/17 11:44 Dose: Not Given Oxycodone HCl (Oxycodone) 10 mg PO Q6H PRN PRN Reason: Pain Sodium Chloride (Saline Flush) 10 ml FLUSH ASDIRECTED PRN PRN Reason: Keep Vein Open Sodium Chloride (Saline Flush) 2.5 ml FLUSH ASDIRECTED PRN PRN Reason: Keep Vein Open Discontinued Medications Bisacodyl (Dulcolax) 20 mg PO ONETIME ONE Stop: 05/13/17 10:01 Last Admin: 05/13/17 10:31 Dose: 20 mg Sodium Chloride (Normal Saline) 1,000 mls @ 125 mls/hr IV STAT PHILLIP Sodium Chloride (Normal Saline) 500 mls @ 125 mls/hr IV ASDIRECTED PHILLIP Last Admin: 05/12/17 09:42 Dose: 125 mls/hr Sodium Chloride (Normal Saline) 500 mls @ 125 mls/hr IV ASDIRECTED PHILLIP Sodium Chloride (Normal Saline) 1,000 mls @ 125 mls/hr IV ASDIRECTED PHILLIP Last Admin: 05/13/17 07:07 Dose: 125 mls/hr Sodium Chloride (Normal Saline) 1,000 mls @ 75 mls/hr IV ASDIRECTED PHILLIP Iopamidol (Isovue Multipack-370 (76%)) 100 ml IVPUSH ONETIME ONE Stop: 05/13/17 09:48 Polyethylene Glycol (Miralax) 119 gm PO Q3H PHILLIP Stop: 05/13/17 13:01 Last Admin: 05/13/17 13:11 Dose: 119 gm
[2017-05-14] MEDS: Insulin Aspart 100 Units/ML 3 ML Pen SUBCUT SCH ×4 (00:49→17:49)
[2017-05-14] MEDS: Gabapentin 100 MG Cap PO SCH ×2 (06:11→15:10)
[2017-05-14] MEDS ORDERED: Magnesium Citrate Solution 296 ML Bottle PO ONE (07:26)
--- NOTE | 2017-05-14 07:53 | PCM.PN ---
- General Info Date of Service: 05/14/17 Admission Dx/Problem (Free Text): Admission Diagnosis/Problem Admission Diagnosis/Problem Anemia Subjective Update: Doing well this morning. reports he had BMs up until midnight, but none since and it wasn't very clear. No chest pain or palpitations. No other concerns this morning. Functional Status: Reports: Pain Controlled, Ambulating, Urinating - Review of Systems HEENT: Reports: No Symptoms. Denies: Headaches, Sore Throat, Visual Changes Pulmonary: Reports: No Symptoms. Denies: Shortness of Breath, Cough, Sputum Cardiovascular: Reports: No Symptoms. Denies: Chest Pain, Palpitations Gastrointestinal: Reports: No Symptoms. Denies: Abdominal Pain, Nausea, Vomiting Genitourinary: Reports: No Symptoms. Denies: Dysuria, Frequency, Burning Musculoskeletal: Reports: No Symptoms. Denies: Neck Pain Neurological: Reports: No Symptoms. Denies: Confusion Psychiatric: Reports: No Symptoms. Denies: Confusion - Patient Data Vitals - Most Recent: Last Vital Signs Temp 98.6 F 05/14/17 04:00 Pulse 98 05/14/17 04:00 Resp 19 05/14/17 04:00 BP 141/67 H 05/14/17 04:00 Pulse Ox 96 05/14/17 04:00 Weight - Most Recent: 116 kg I&O - Last 24 Hours: Intake & Output 05/13/17 05/14/17 05/14/17 22:59 06:59 14:59 Intake Total 2160 616 Output Total 1675 750 Balance 485 -134 Lab Results Last 24 Hours: Laboratory Results - last 24 hr 05/13/17 05/13/17 05/14/17 Range/Units 11:42 16:57 00:41 WBC (4.0-11.0) K/uL RBC (4.50-5.90) M/uL Hgb (13.0-17.0) g/dL Hct (38.0-50.0) % MCV (80.0-98.0) fL MCH (27.0-32.0) pg MCHC (31.0-37.0) g/dL RDW Std Deviation (28.0-62.0) fl RDW Coeff of Jigar (11.0-15.0) % Plt Count (150-400) K/uL MPV (7.40-12.00) fL Neut % (Auto) (48.0-80.0) % Lymph % (Auto) (16.0-40.0) % [place] % (Auto) (0.0-15.0) % Eos % (Auto) (0.0-7.0) % Baso % (Auto) (0.0-1.5) % Neut # (Auto) (1.4-5.7) K/uL Lymph # (Auto) (0.6-2.4) K/uL [place] # (Auto) (0.0-0.8) K/uL Eos # (Auto) (0.0-0.7) K/uL Baso # (Auto) (0.0-0.1) K/uL Nucleated RBC % /100WBC Nucleated RBCs # K/uL POC Glucose 126 H 154 H 178 H (60-110) mg/dL 05/14/17 05/14/17 Range/Units 05:02 06:08 WBC 8.56 (4.0-11.0) K/uL RBC 4.04 L (4.50-5.90) M/uL Hgb 8.9 L (13.0-17.0) g/dL Hct 29.8 L (38.0-50.0) % MCV 73.8 L (80.0-98.0) fL MCH 22.0 L (27.0-32.0) pg MCHC 29.9 L (31.0-37.0) g/dL RDW Std Deviation 54.9 (28.0-62.0) fl RDW Coeff of Jigar 20 H (11.0-15.0) % Plt Count 478 H (150-400) K/uL MPV 9.10 (7.40-12.00) fL Neut % (Auto) 60.2 (48.0-80.0) % Lymph % (Auto) 27.8 (16.0-40.0) % [place] % (Auto) 9.6 (0.0-15.0) % Eos % (Auto) 2.0 (0.0-7.0) % Baso % (Auto) 0.4 (0.0-1.5) % Neut # (Auto) 5.2 (1.4-5.7) K/uL Lymph # (Auto) 2.4 (0.6-2.4) K/uL [place] # (Auto) 0.8 (0.0-0.8) K/uL Eos # (Auto) 0.2 (0.0-0.7) K/uL Baso # (Auto) 0.0 (0.0-0.1) K/uL Nucleated RBC % 0.0 /100WBC Nucleated RBCs # 0 K/uL POC Glucose 153 H (60-110) mg/dL Med Orders - Current: Current Medications Acetaminophen (Tylenol) 650 mg PO Q4H PRN PRN Reason: Pain (Mild 1-3)/fever Atorvastatin Calcium (Lipitor) 80 mg PO DAILY PH[facility]IP Gabapentin (Neurontin) 100 mg PO TID [facility] Last Admin: 05/14/17 06:11 Dose: Not Given Insulin Aspart (Novolog) 0 unit SUBCUT Q6H PHILLIP PRN Reason: Protocol Last Admin: 05/14/17 06:10 Dose: Not Given Oxycodone HCl (Oxycodone) 10 mg PO Q6H PRN PRN Reason: Pain Last Admin: 05/13/17 21:25 Dose: 10 mg Sodium Chloride (Saline Flush) 10 ml FLUSH ASDIRECTED PRN PRN Reason: Keep Vein Open Sodium Chloride (Saline Flush) 2.5 ml FLUSH ASDIRECTED PRN PRN Reason: Keep Vein Open Discontinued Medications Bisacodyl (Dulcolax) 20 mg PO ONETIME ONE Stop: 05/13/17 10:01 Last Admin: 05/13/17 10:31 Dose: 20 mg Sodium Chloride (Normal Saline) 1,000 mls @ 125 mls/hr IV STAT PHILLIP Sodium Chloride (Normal Saline) 500 mls @ 125 mls/hr IV ASDIRECTED PHILLIP Last Admin: 05/12/17 09:42 Dose: 125 mls/hr Sodium Chloride (Normal Saline) 500 mls @ 125 mls/hr IV ASDIRECTED PHILLIP Sodium Chloride (Normal Saline) 1,000 mls @ 125 mls/hr IV ASDIRECTED PHILLIP Last Admin: 05/13/17 07:07 Dose: 125 mls/hr Sodium Chloride (Normal Saline) 1,000 mls @ 75 mls/hr IV ASDIRECTED PHILLIP Insulin Aspart (Novolog) 0 unit SUBCUT TIDAC PHILLIP PRN Reason: Protocol Stop: 05/13/17 23:59 Last Admin: 05/13/17 17:00 Dose: 1 units Iopamidol (Isovue Multipack-370 (76%)) 100 ml IVPUSH ONETIME ONE Stop: 05/13/17 09:48 Last Admin: 05/13/17 19:48 Dose: Not Given Magnesium Citrate (Citrate Of Magnesia) 296 ml PO ONETIME ONE Stop: 05/14/17 07:27 Polyethylene Glycol (Miralax) 119 gm PO Q3H [facility] Stop: 05/13/17 13:01 Last Admin: 05/13/17 13:11 Dose: 119 gm - Exam General: Alert, Oriented, Cooperative, No Acute Distress Neck: Supple Lungs: Clear to Auscultation, Normal Respiratory Effort Cardiovascular: Regular Rate, Regular Rhythm, Murmurs GI/Abdominal Exam: Normal Bowel Sounds, Soft, Non-Tender, No Organomegaly, No Distention, No Abnormal Bruit, No Mass, Pelvis Stable Back Exam: Normal Inspection, Full Range of Motion Extremities: Normal Inspection, Normal Range of Motion, Non-Tender, No Pedal Edema, Normal Capillary Refill, Other (L BKA) Neurological: No New Focal Deficit Psy/Mental Status: Alert, Normal Affect, Normal Mood - Problem List & Annotations (1) Anemia SNOMED Code(s): 894973316 Code(s): D64.9 - ANEMIA, UNSPECIFIED Status: Acute Current Visit: No (2) Hx of BKA Status: Chronic Current Visit: Yes Qualifiers: Laterality: left Qualified Code(s): Z89.512 - Acquired absence of left leg below knee (3) Diabetes SNOMED Code(s): 31049219 Code(s): E11.9 - TYPE 2 DIABETES MELLITUS WITHOUT COMPLICATIONS Status: Acute Current Visit: Yes Qualifiers: Diabetes mellitus type: type 2 Diabetes mellitus complication status: without complication Diabetes mellitus terminologist insulin use: with care home use Qualified Code(s): E11.9 - Type 2 diabetes mellitus without complications ; Z79.4 - terminologist (current) use of insulin; Z79.4 - MCC (current) use of insulin; Z79.4 - terminologist (current) use of insulin; Z79.4 - terminologist ( current) use of insulin - Problem List Review Problem List Initiated/Reviewed/Updated: Yes - My Orders Last 24 Hours: My Active Orders 05/13/17 11:24 oxyCODONE 10 mg PO Q6H PRN 05/13/17 14:00 Gabapentin [Neurontin] 100 mg PO TID 05/13/17 Dinner NPO After Midnight [Nothing per Oral After Midnight Diet] [DIET] 05/14/17 09:00 atorvaSTATin [Lipitor] 80 mg PO DAILY - Plan Plan:: This is a 66-year-old male presenting with acute anemia of 6.6 requiring blood transfusion shows acute anemia of presently unknown etiology. 1. Anemia: Hgb 8.9 this morning. Hemoccult negative. EGD/colonscopy planned this afternoon with Dr Arreola. Spoke with Dr. Arreola regarding stools, will give 1 bottle of mag citrate this morning. Abd/pelvis CT obtained no acute findings besides a subtle lucency noted on vertebral body L2, will notify patient and suggest follow up with PCP. 2. DM type 2: Novolog SSI BS controlled. Will monitor Holding PO medications. 3. Hx L BKA: Restart Gabapentin and PRN OXycodone for pain. Stable now. Hold when NPO for endoscopy tomorrow. VTE prophylaxis: SCDs only due to anemia Dispo: possibly later today.
[2017-05-14] MEDS ORDERED: atorvaSTATin 40 MG Tab PO SCH (09:00)
[2017-05-14] MEDS ORDERED: Lactated Ringers 1,000 ML IV SCH (09:15)
[2017-05-14] MEDS ORDERED: Lidocaine 2% 5 ML SDV ONE (14:04)
[2017-05-14] MEDS ORDERED: Midazolam 1 MG/ML 2 ML SDV ONE (14:05)
[2017-05-14] MEDS ORDERED: Propofol 200 MG/20 ML SDV ONE ×3 (14:05→15:47)
[2017-05-14] MEDS ORDERED: fentaNYL 100 MCG/2 ML SDV ONE (14:05)
[2017-05-14] MEDS ORDERED: cefOXitin 1 GM Vial ONE (15:54)
--- NOTE | 2017-05-14 16:26 | PCM.POSTAN ---
POST ANESTHESIA ASSESSMENT - MENTAL STATUS Mental Status: Alert, Oriented - RESPIRATORY Respiratory Status: Respiratory Rate WNL, Airway Patent, O2 Saturation Stable - CARDIOVASCULAR CV Status: Pulse Rate WNL, Blood Pressure Stable - GASTROINTESTINAL GI Status: No Symptoms - PAIN Pain Score: 0 - POST OP HYDRATION Hydration Status: Adequate & Stable
--- NOTE | 2017-05-14 16:26 | PCM.SN ---
- Free Text/Narrative Note: Date of Surgery/Procedure: 05/14/17 Operative Procedure(s): Diagnostic EGD and colonoscopy Findings: Normal EGD, 1 transverse colon polyp, 5 descending colon polyps, 10 sigmoid colon polyps, 3 rectal polyps Pre Op Diagnosis: Anemia Post-Op Diagnosis: Normal EGD and colon polyps Anesthesia Technique: MAC Primary Surgeon: Judie Arreola Condition: Good
--- NOTE | 2017-05-14 16:30 | PCM.SN ---
- Free Text/Narrative Note: Patient had a normal EGD but multiple colonic polyps. These polyps were relatively small however given the number and fair-poor prep he will most likely need to be scoped again in 6 months. Despite the number of polyps none of them appeared to be large enough to be causing bleeding. He can restart a regular diet and be discharged when medically stable. Call with any questions or concerns.
--- NOTE | 2017-05-14 16:53 | PCM.DCSUM1 ---
Discharge Summary - Hospital Course Brief History: This is a 66-year-old gentleman who is presenting secondary to acute anemia of 6.6. Patient was just seen at the [facility] for laboratory assessment and was found to be anemic at 6.6 and was transferred over for blood transfusion. Patient is scheduled to have a screening colonoscopy and EGD on June [address] Segura. Patient denies any acute GI bleed, or acute abdominal pain, hemorrhoids, nausea/vomiting or other symptoms of acute blood loss. Patient states that he has been told that he has been pale and possibly anemic for the past month by family. Patient family wanted to see his primary care physician his primary care physician Dr. Fagan for assessment was found to be anemic. Patient states that he has been having dark tarry stools once or twice a month, and no sonali blood seen. Patient's past medical history significant for type 2 diabetes mellitus for which she's had a below knee amputation of his right leg secondary to complications of this type 2 diabetes. - Discharge Data Discharge Date: 05/14/17 Discharge Disposition: Home, Self-Care 01 Condition: Good - Discharge Diagnosis/Problem(s) (1) Anemia SNOMED Code(s): 997419251 ICD Code: D64.9 - ANEMIA, UNSPECIFIED Status: Acute Current Visit: No (2) Hx of BKA Status: Chronic Current Visit: Yes Qualifiers: Laterality: left Qualified Code(s): Z89.512 - Acquired absence of left leg below knee (3) Diabetes SNOMED Code(s): 45281438 ICD Code: E11.9 - TYPE 2 DIABETES MELLITUS WITHOUT COMPLICATIONS Status: Acute Current Visit: Yes Qualifiers: Diabetes mellitus type: type 2 Diabetes mellitus complication status: without complication Diabetes mellitus supervisor intermediates insulin use: with fdc use Qualified Code(s): E11.9 - Type 2 diabetes mellitus without complications ; Z79.4 - termite control technician (current) use of insulin; Z79.4 - termite control technician (current) use of insulin; Z79.4 - FDC (current) use of insulin; Z79.4 - termite control technician ( current) use of insulin - Patient Instructions Diet: Diabetic Diet Activity: As Tolerated, No Strenuous Activities, Rest and Relax Today Showering/Bathing: May Shower Notify Provider of: Fever, Increased Pain, Swelling and Redness, Drainage, Nausea and/or Vomiting - Discharge Plan Prescriptions/Med Rec: Ferrous Sulfate 324 mg PO TIDMEALS #90 tablet. Home Medications: Home Meds Aspirin [Adult Low Dose Aspirin EC] 81 mg PO DAILY 05/12/17 [History] Cyclobenzaprine [Flexeril] 10 mg PO TID PRN 05/12/17 [History] Empagliflozin [Jardiance] 10 mg PO DAILY 05/12/17 [History] Gabapentin [Neurontin] 100 mg PO TID 05/12/17 [History] Gemfibrozil 600 mg PO BID 05/12/17 [History] Insulin Glargine,Hum.Rec.Anlog [Toujeo Solostar] 50 units SUBCUT DAILY 05/12/17 [History] Insulin Lispro [Humalog Kwikpen U-200] 0 unit SUBCUT TIDAC MDD 130 units [History] Omeprazole 40 mg PO ACBREAKFAST 05/12/17 [History] atorvaSTATin [Lipitor] 80 mg PO DAILY 05/12/17 [History] oxyCODONE 10 mg PO Q6H PRN 05/12/17 [History] sitaGLIPtin Phos/Metformin HCl [Janumet Xr 50-1,000 mg Tablet] 2 tab PO PCDINNER 05/12/17 [History] Ferrous Sulfate 324 mg PO TIDMEALS #90 tablet. 05/14/17 [Rx] Patient Handouts: Colonoscopy, Adult, [id number], Anemia, Esophagogastroduodenoscopy, Care After Referrals: Judie Arreola MD [Physician] - 05/30/17 9:15 am (follow up in 2 weeks. ) Jesse Gruber MD [Primary Care Provider] - 05/21/17 12:30 pm (1 week) - Discharge Summary/Plan Comment DC Time >30 min.: No Discharge Summary/Plan Comment: Discharge Diagnoses; Anemia DM Type 2 Sharan Leroy was admitted for anemia with hgb 6.6. He was transfused 4 units total of PRBCs and hgb has now remained stable at 8.9. Today he went for EGD/colonoscopy with Dr Arreola, please see her dictation. No areas of bleeding noted in stomach or colon. Anemia may be related to recent large surgery of Sharan NICHOLEA as well as a revision and anemia of chronic disease. He reports he takes 1 tab of ferrous sulfate daily. He was encouraged to increase this to TID. He will be discharged this evening with follow up with Dr Gruber next week and with Dr Arreola in 2 weeks to discuss pathology of colon and stomach biopsies. He is to return to ED or clinic if concerns should arise. - General Info Date of Service: 05/14/17 Admission Dx/Problem (Free Text: Admission Diagnosis/Problem Admission Diagnosis/Problem Anemia Subjective Update: Doing well after returning from endoscopy. No pain and eager to eat and go home. NO chest pain SOB or abdominal pain. Functional Status: Reports: Pain Controlled, Tolerating Diet, Urinating - Review of Systems HEENT: Reports: No Symptoms. Denies: Headaches, Sore Throat Pulmonary: Reports: No Symptoms. Denies: Shortness of Breath Cardiovascular: Reports: No Symptoms. Denies: Chest Pain Gastrointestinal: Reports: No Symptoms. Denies: Abdominal Pain, Nausea, Vomiting - Patient Data Vitals - Most Recent: Last Vital Signs Temp 99.1 F 05/14/17 16:04 Pulse 72 05/14/17 16:19 Resp 14 05/14/17 16:19 BP 145/78 H 05/14/17 16:19 Pulse Ox 100 05/14/17 16:19 Weight - Most Recent: 116 kg I&O - Last 24 hours: Intake & Output 05/14/17 05/14/17 05/14/17 06:59 14:59 22:59 Intake Total 616 1000 Output Total 750 Balance -134 1000 Lab Results - Last 24 hrs: Laboratory Results - last 24 hr 05/13/17 05/14/17 05/14/17 Range/Units 16:57 00:41 05:02 WBC 8.56 (4.0-11.0) K/uL RBC 4.04 L (4.50-5.90) M/uL Hgb 8.9 L (13.0-17.0) g/dL Hct 29.8 L (38.0-50.0) % MCV 73.8 L (80.0-98.0) fL MCH 22.0 L (27.0-32.0) pg MCHC 29.9 L (31.0-37.0) g/dL RDW Std Deviation 54.9 (28.0-62.0) fl RDW Coeff of Jigar 20 H (11.0-15.0) % Plt Count 478 H (150-400) K/uL MPV 9.10 (7.40-12.00) fL Neut % (Auto) 60.2 (48.0-80.0) % Lymph % (Auto) 27.8 (16.0-40.0) % [place] % (Auto) 9.6 (0.0-15.0) % Eos % (Auto) 2.0 (0.0-7.0) % Baso % (Auto) 0.4 (0.0-1.5) % Neut # (Auto) 5.2 (1.4-5.7) K/uL Lymph # (Auto) 2.4 (0.6-2.4) K/uL [place] # (Auto) 0.8 (0.0-0.8) K/uL Eos # (Auto) 0.2 (0.0-0.7) K/uL Baso # (Auto) 0.0 (0.0-0.1) K/uL Nucleated RBC % 0.0 /100WBC Nucleated RBCs # 0 K/uL POC Glucose 154 H 178 H (60-110) mg/dL 05/14/17 05/14/17 Range/Units 06:08 11:55 WBC (4.0-11.0) K/uL RBC (4.50-5.90) M/uL Hgb (13.0-17.0) g/dL Hct (38.0-50.0) % MCV (80.0-98.0) fL MCH (27.0-32.0) pg MCHC (31.0-37.0) g/dL RDW Std Deviation (28.0-62.0) fl RDW Coeff of Jigar (11.0-15.0) % Plt Count (150-400) K/uL MPV (7.40-12.00) fL Neut % (Auto) (48.0-80.0) % Lymph % (Auto) (16.0-40.0) % [place] % (Auto) (0.0-15.0) % Eos % (Auto) (0.0-7.0) % Baso % (Auto) (0.0-1.5) % Neut # (Auto) (1.4-5.7) K/uL Lymph # (Auto) (0.6-2.4) K/uL [place] # (Auto) (0.0-0.8) K/uL Eos # (Auto) (0.0-0.7) K/uL Baso # (Auto) (0.0-0.1) K/uL Nucleated RBC % /100WBC Nucleated RBCs # K/uL POC Glucose 153 H 153 H (60-110) mg/dL Med Orders - Current: Current Medications Acetaminophen (Tylenol) 650 mg PO Q4H PRN PRN Reason: Pain (Mild 1-3)/fever Atorvastatin Calcium (Lipitor) 80 mg PO DAILY [facility] Last Admin: 05/14/17 09:30 Dose: Not Given Gabapentin (Neurontin) 100 mg PO TID [facility] Last Admin: 05/14/17 15:10 Dose: Not Given Insulin Aspart (Novolog) 0 unit SUBCUT Q6H PHILLIP PRN Reason: Protocol Last Admin: 05/14/17 12:03 Dose: Not Given Oxycodone HCl (Oxycodone) 10 mg PO Q6H PRN PRN Reason: Pain Last Admin: 05/13/17 21:25 Dose: 10 mg Sodium Chloride (Saline Flush) 10 ml FLUSH ASDIRECTED PRN PRN Reason: Keep Vein Open Sodium Chloride (Saline Flush) 2.5 ml FLUSH ASDIRECTED PRN PRN Reason: Keep Vein Open Discontinued Medications Bisacodyl (Dulcolax) 20 mg PO ONETIME ONE Stop: 05/13/17 10:01 Last Admin: 05/13/17 10:31 Dose: 20 mg Cefoxitin Sodium (Mefoxin) Confirm Administered Dose 2 gm .ROUTE .STK-MED ONE Stop: 05/14/17 15:55 Fentanyl (Sublimaze) Confirm Administered Dose 100 mcg .ROUTE .STK-MED ONE Stop: 05/14/17 14:06 Sodium Chloride (Normal Saline) 1,000 mls @ 125 mls/hr IV STAT PHILLIP Sodium Chloride (Normal Saline) 500 mls @ 125 mls/hr IV ASDIRECTED PHILLIP Last Admin: 05/12/17 09:42 Dose: 125 mls/hr Sodium Chloride (Normal Saline) 500 mls @ 125 mls/hr IV ASDIRECTED [facility] Sodium Chloride (Normal Saline) 1,000 mls @ 125 mls/hr IV ASDIRECTED PHILLIP Last Admin: 05/13/17 07:07 Dose: 125 mls/hr Sodium Chloride (Normal Saline) 1,000 mls @ 75 mls/hr IV ASDIRECTED [facility] Lactated Ringer's (Ringers, Lactated) 1,000 mls @ 75 mls/hr IV ASDIRECTED [facility] Last Admin: 05/14/17 09:21 Dose: 75 mls/hr Insulin Aspart (Novolog) 0 unit SUBCUT TIDAC [facility] PRN Reason: Protocol Stop: 05/13/17 23:59 Last Admin: 05/13/17 17:00 Dose: 1 units Iopamidol (Isovue Multipack-370 (76%)) 100 ml IVPUSH ONETIME ONE Stop: 05/13/17 09:48 Last Admin: 05/13/17 19:48 Dose: Not Given Lidocaine (Xylocaine-Mpf 2%) Confirm Administered Dose 5 ml .ROUTE .STK-MED ONE Stop: 05/14/17 14:05 Magnesium Citrate (Citrate Of Magnesia) 296 ml PO ONETIME ONE Stop: 05/14/17 07:27 Last Admin: 05/14/17 07:57 Dose: 296 ml Midazolam HCl (Versed 1 Mg/Ml) Confirm Administered Dose 2 mg .ROUTE .STK-MED ONE Stop: 05/14/17 14:06 Polyethylene Glycol (Miralax) 119 gm PO Q3H [facility] Stop: 05/13/17 13:01 Last Admin: 05/13/17 13:11 Dose: 119 gm Propofol (Diprivan 20 Ml) Confirm Administered Dose 400 mg .ROUTE .STK-MED ONE Stop: 05/14/17 14:06 Propofol (Diprivan 20 Ml) Confirm Administered Dose 200 mg .ROUTE .STK-MED ONE Stop: 05/14/17 15:21 Propofol (Diprivan 20 Ml) Confirm Administered Dose 200 mg .ROUTE .STK-MED ONE Stop: 05/14/17 15:48 - Exam General: Reports: Alert, Oriented, Cooperative, No Acute Distress Lungs: Reports: Clear to Auscultation, Normal Respiratory Effort Cardiovascular: Reports: Regular Rate, Regular Rhythm, Murmurs GI/Abdominal Exam: Normal Bowel Sounds, Soft, Non-Tender, No Organomegaly, No Distention, No Abnormal Bruit, No Mass, Pelvis Stable Extremities: Normal Inspection, Normal Range of Motion, Non-Tender, No Pedal Edema, Normal Capillary Refill Neurological: Reports: No New Focal Deficit Psy/Mental Status: Reports: Alert, Normal Affect, Normal Mood *Q Meaningful Use (DIS) - VTE *Q VTE Criteria *Q: - Stroke *Q Stroke Criteria *Q: - AMI *Q AMI Criteria *Q:
--- NOTE | 2017-05-14 17:44 | PCM48HPAN ---
Post Anesthesia Note - EVALUATION WITHIN 48HRS OF ANESTHETIC Vital Signs in Normal Range: Yes Patient Participated in Evaluation: Yes Respiratory Function Stable: Yes Airway Patent: Yes Cardiovascular Function Stable: Yes Hydration Status Stable: Yes Pain Control Satisfactory: Yes Nausea and Vomiting Control Satisfactory: Yes Mental Status Recovered: Yes Resp Rate: 14 Temperature: 98.1 F
[2017-05-14 18:42] VITALS: BP 128/54
--- NOTE | 2017-05-14 22:37 | OR ---
SURGEON: ROYA CRABTREE MD DATE OF PROCEDURE: 05/14/2017 PREOPERATIVE DIAGNOSIS: Anemia. POSTOPERATIVE DIAGNOSIS: Normal EGD, multiple colon polyps. PROCEDURE PERFORMED: Diagnostic EGD and colonoscopy. ANESTHESIA: MAC. INSTRUMENT USED: Olympus endoscope and colonoscope. EXTENT OF EXAM: To the second portion of the duodenum, to the cecum. PREPARATION: Fair. LIMITATIONS: Prep. INDICATIONS: The patient is a 66-year-old male who presented with acute anemia of unknown origin. Fecal occult blood test was negative. The decision was made to look for a GI source of his bleeding despite this test. We discussed the need for diagnostic EGD and colonoscopy. We discussed the procedure, expected perioperative course, and risks including bleeding, infection, or damage to surrounding structures including perforation. The patient verbalized understanding and wishes to proceed. PROCEDURE IN DETAIL: The patient was brought to the endoscopy suite and placed in the left lateral decubitus position. A time-out was completed verifying the patient's name, age, date of , allergies, and procedure to be performed. A bite block was placed in the patient's mouth, and monitored anesthesia care was induced. Continuous oxygen was provided via nasal cannula throughout the procedure. After adequate sedation was achieved, a well lubricated endoscope was placed in the patient's mouth and advanced under direct visualization to the second portion of duodenum. This appeared normal, and a photograph was taken. The scope was then fully withdrawn while examining the color, texture, anatomy, and integrity of the mucosa of the upper GI tract. This all appeared normal. The biopsies were taken of the gastric antrum, body, and fundus and sent for H. pylori and histologic testing. Photographs were taken of the pylorus as well as the GE junction, retroflexed in the stomach and in the distal esophagus, all of which appeared normal. The scope was then removed from the esophagus, and this portion of the procedure was terminated. A digital rectal exam was performed. This exam was within normal limits. A well lubricated colonoscope was inserted in the rectum and advanced under direct visualization at the level of the cecum. The cecum was identified by both visual and anatomic landmarks. A photograph was taken of the cecal cap; however, I was unable to retroflex the scope within the cecum. The scope was then fully withdrawn while examining the color, texture, anatomy, and integrity of the mucosa from the cecum to the anal canal. The patient had a fair to poor prep, requiring a large amount of irrigation in order to be able to see the colonic wall adequately. The patient had numerous polyps throughout the colon. There was one transverse colon polyp, five descending colon polyps, 10 sigmoid colon polyps, and 3 rectal polyps. These polyps appeared to be greater than 1 cm and most were removed using a cold biopsy forceps. Some were removed using a hot snare. All bleeding was stopped prior to me leaving each biopsy site. The scope was then brought into the rectum and retroflexed to allow visualization of the anal canal opening. This appeared normal, and a photograph was taken. The scope was then straightened out and removed from the patient. The cecum to anus time was greater than 30 minutes. The patient tolerated the procedure well and was taken to PACU in stable condition. ENDOSCOPIC DIAGNOSES: 1. Normal EGD. 2. Multiple colon polyps. RECOMMENDATIONS: The patient can return to the floor and resume a regular diet. I do not believe that his anemia is caused by these multiple polyps given they were all small and had no stigmata of bleeding. The patient should begin outpatient workup for his anemia with the medicine doctor. I want to see him back in clinic in 2 weeks to go through the pathology results of his multiple polypectomies. The patient will need a repeat colonoscopy in six months due to the fair to poor prep as well as the numerous polyps throughout the colon. KYRA CARMONA /[id number]
== END 2017-05-14 19:00 | disposition home or self-care (01) ==
LOC: MW.ED 08:40 → MW.MS 09:29
PROVIDERS: ADMIT Internal Medicine; ATTEND Internal Medicine
DX: K63.5 Polyp of colon (principal); K62.1 Rectal polyp; I10 Essential (primary) hypertension; E78.00 Pure hypercholesterolemia, unspecified; K21.9 Gastro-esophageal reflux disease without esophagitis; E11.9 Type 2 diabetes mellitus without complications; Z79.82 Long term (current) use of aspirin; Z79.4 Long term (current) use of insulin; Z79.899 Other long term (current) drug therapy
CPT/HCPCS: 36415; 36430; 43239; 45380; 71045; 74178; 80053; 82272; 82962; 85014; 85018; 85025; 85610; 86850; 86900; 86901; 86920; 86921; 86922; 93005; 96360; 96361; 99285; A9270; G0378; J0694; J1815; J2250; J3010; J7040; J7120; P9016; 00813; 88305; 88312; 99284; J2704

== ENCOUNTER 2021-11-23 14:05 | Emergency (ER) | payer BC, MEDICARE ==
[2021-11-23] MEDS ORDERED: Sodium Chloride 0.9% 10 ML Syringe FLUSH PRN ×2 (14:15→14:29)
[2021-11-23] MEDS ORDERED: Sodium Chloride 0.9% 2.5 ML Syringe FLUSH PRN ×2 (14:15→14:29)
[2021-11-23] MEDS ORDERED: Sodium Chloride 0.9% 1,000 ML IV ONE (14:33)
[2021-11-23] MEDS ORDERED: Ondansetron 4 MG/2 ML SDV IVPUSH ONE (14:33)
[2021-11-23] MEDS ORDERED: HYDROmorphone 1 MG/ML Syringe IVPUSH ONE ×2 (14:33→16:00)
[2021-11-23 15:53] LABS: CARBON DIOXIDE,CO2 25.2 mmol/L (21.0-32.0); POTASSIUM,K 4.6 mmol/L (3.5-5.1)
[2021-11-23 16:52] VITALS: BP 151/43
[2021-11-23] MEDS ORDERED: Iopamidol 755 MG/ML 500 ML Multipack Bottle IVPUSH STA (16:56)
[2021-11-23] MEDS ORDERED: Heparin Sodium 5,000 Units/ML Vial IVPUSH ONE (18:21)
[2021-11-23] MEDS ORDERED: Heparin Sodium/0.45% NaCl 500 ML IV SCH (18:30)
[2021-11-24 01:43] VITALS: PULSE 65
== END 2021-11-23 20:00 ==
LOC: MW.ED 14:05
DX: I77.1 Stricture of artery (principal); I10 Essential (primary) hypertension; K21.9 Gastro-esophageal reflux disease without esophagitis; E11.9 Type 2 diabetes mellitus without complications; E78.00 Pure hypercholesterolemia, unspecified; Z79.82 Long term (current) use of aspirin; Z79.899 Other long term (current) drug therapy; Z79.4 Long term (current) use of insulin; Z20.822 Contact with and (suspected) exposure to COVID-19
CPT/HCPCS: 36415; 71045; 73706; 80053; 85025; 85610; 93005; 96361; 96365; 96375; 96376; 99285; J1170; J1644; J2405; J3490; J7030; Q9967; U0002

== ENCOUNTER 2022-09-08 10:51 | Emergency (ER) | payer MEDICARE, BC ==
[2022-09-08] MEDS ORDERED: Sodium Chloride 0.9% 10 ML Syringe FLUSH PRN (11:02)
[2022-09-08] MEDS ORDERED: Sodium Chloride 0.9% 2.5 ML Syringe FLUSH PRN (11:02)
[2022-09-08 11:39] LABS: HEMATOCRIT 24.6 % (38.0-50.0); HEMOGLOBIN 6.8 g/dL (13.0-17.0); MEAN CORPUSCULAR HEMOGLOBIN 18.5 pg (27.0-32.0); MEAN CORPUSCULAR HGB CONC 27.6 g/dL (31.0-37.0); NRBC ABSOLUTE 0 K/uL; NRBC PERCENT 0.9 /100WBC; PLATELET COUNT,PLT 595 K/uL (150-400); RED BLOOD CELL COUNT 3.67 M/uL (4.50-5.90); WHITE BLOOD CELL COUNT,WBC 9.32 K/uL (4.0-11.0)
[2022-09-08 11:52] LABS: INR 3.01 (0.86-1.11)
[2022-09-08 11:56] LABS: A/G RATIO 0.7 (0.9-1.6); ALBUMIN 3.1 g/dL (3.4-5.0); BILIRUBIN TOTAL 0.4 mg/dL (0.2-1.0); CALCIUM 8.4 mg/dL (8.5-10.1); CARBON DIOXIDE,CO2 22.4 mmol/L (21.0-32.0); CREATININE 1.2 mg/dL (0.8-1.3); EST CRCL DRUG DOSING (CG) 68.46 mL/min; POTASSIUM,K 4.2 mmol/L (3.5-5.1); PROTEIN TOTAL,TP 7.4 g/dL (6.4-8.2)
[2022-09-08 12:23] LABS: BASOPHILS ABSOLUTE MAN 0.1 (0.0-0.1); BASOPHILS PERCENT MAN 1 % (0.0-1.5); LYMPHOCYTES ABSOLUTE MAN 0.5 (0.6-2.4); LYMPHOCYTES PERCENT MAN 5 % (16.0-40.0); MONOCYTES ABSOLUTE MAN 0.5 (0.0-0.8); MONOCYTES PERCENT MAN 5 % (0.0-15.0); SEG NEUTROPHILS ABSOLUTE MAN 8.3 (1.4-5.7); SEG NEUTROPHILS PERCENT MAN 89 % (48.0-80.0)
[2022-09-08 12:24] LABS: ELLIPTOCYTES 1+ SLIGHT; POIKILOCYTOSIS 2+ MODERATE; TARGET CELLS FEW
[2022-09-08 12:25] LABS: HELMET CELLS FEW; PLATELET COUNT ESTIMATE INCREASED
[2022-09-08] MEDS ORDERED: Iopamidol 755 MG/ML 500 ML Multipack Bottle IVPUSH ONE (12:28)
[2022-09-08 12:34] LABS: APPEARANCE,URINE CLEAR; BILIRUBIN,URINE NEGATIVE (NEGATIVE); COLOR,URINE YELLOW; GLUCOSE,URINE >=1000 mg/dL (NEGATIVE); KETONES,URINE NEGATIVE (NEGATIVE); LEUKOCYTE ESTERASE,URINE NEGATIVE (NEGATIVE); NITRITE,URINE NEGATIVE (NEGATIVE); OCCULT BLOOD,URINE NEGATIVE (NEGATIVE); PH,URINE 5.5 (5.0-8.0); PROTEIN,URINE NEGATIVE (NEGATIVE); UROBILINOGEN,URINE 0.2 EU/dL (<2.0)
[2022-09-08 13:25] VITALS: BP 112/32; PULSE 99
== END 2022-09-08 14:42 ==
LOC: MW.ED 10:51
DX: I21.4 Non-ST elevation (NSTEMI) myocardial infarction (principal); D64.9 Anemia, unspecified; I11.0 Hypertensive heart disease with heart failure; I50.9 Heart failure, unspecified; R79.0 Abnormal level of blood mineral; E78.00 Pure hypercholesterolemia, unspecified; K21.9 Gastro-esophageal reflux disease without esophagitis; E11.9 Type 2 diabetes mellitus without complications; Z79.01 Long term (current) use of anticoagulants; Z79.82 Long term (current) use of aspirin; Z79.4 Long term (current) use of insulin; Z79.899 Other long term (current) drug therapy; Z20.822 Contact with and (suspected) exposure to COVID-19
CPT/HCPCS: 36415; 36430; 71275; 74177; 80053; 81003; 83605; 83880; 84484; 85025; 85610; 86850; 86900; 86901; 86920; 93005; 99285; J3490; P9016; Q9967; U0002; 93010